=== PATIENT | male | born 1965 | race Caucasian/White ===

== ENCOUNTER 2016-05-29 14:21 | Emergency (ER) | payer OTHER ==
[~2016-05-29] VITALS: Ht 175.3 cm; Wt 87.5 kg
[~2016-05-29 14:21] MED LIST: ALLO300T2 PO; AMLO5TAB4 PO; IND50 PO
[2016-05-29 14:26] VITALS: Ht 175.3 cm; Wt 87.5 kg
[2016-05-29] MEDS ORDERED: BEN25 PO (15:03)
[2016-05-29] MEDS ORDERED: PRED20TA PO (15:04)
[2016-05-29] MEDS ORDERED: RANI150T9 PO (15:04)
--- NOTE | 2016-05-29 15:16 | ERD ---
ER Documentation Chief Complaint Date/Time DATE: 05/29/16 TIME: 15:12 Chief Complaint Pt with generalized body itching, "something crawling on my skin"X 2 weeks. HPI This is a 50-year-old male presents to the ER stating of body itching for the last 3 weeks. Patient went to his primary care doctor and was treated for scabies with permethrin however did not work. Patient does not have a rash. Patient states that he is mostly itching on his legs, back and scalp. Patient denies any fevers or chills. He denies any recent travel. Patient denies any new contact with new chemicals, clothing, food. ROS 12 point review of systems was done, all negative except per HPI. Medications Home Meds Active Scripts Prednisone* (Prednisone*) 20 Mg Tab, 60 MG PO DAILY for 5 Days, TAB Prov:SANDY DEMARCO 05/29/16 Ranitidine Hcl* (Zantac*) 150 Mg Tablet, 150 MG PO BID Y for EPIGASTRIC PAIN, # 30 TAB Prov:SANDY DEMARCO 05/29/16 Diphenhydramine Hcl* (Benadryl*) 25 Mg Cap, 25 MG PO Q6, #30 CAP Prov:SANDY DEMARCO 05/29/16 Indomethacin* (Indocin*) 50 Mg Cap, 50 MG PO TID, #14 CAP Prov:SHAHIDA HANDY PA-C 11/24/14 Allopurinol* (Allopurinol*) 300 Mg Tablet, 300 MG PO DAILY, #30 TAB Prov:CARLOS RAM MD 10/12/14 Reported Medications Amlodipine Besylate* (Norvasc*) 5 Mg Tablet, 5 MG PO DAILY, TAB 01/12/15 Allergies Allergies: Coded Allergies: No Known Allergy (Unverified , 01/12/15) PMhx/Soc History of Surgery: No Anesthesia Reaction: No Hx Neurological Disorder: No Hx Respiratory Disorders: No Hx Cardiac Disorders: Yes (HIGH BLOOD PRESSURE) Hx Psychiatric Problems: No Hx Miscellaneous Medical Probl: Yes (gout, CVA without residual) Hx Alcohol Use: Yes (SOCIALY) Hx Substance Use: No Hx Tobacco Use: No Physical Exam Vitals Vital Signs Date Time Temp Pulse Resp B/P Pulse Ox O2 Delivery O2 Flow Rate FiO2 05/29/16 14:26 97.9 96 16 177/88 97 Physical Exam GENERAL: The patient is well developed and appropriate for usual state of health , in no apparent distress. HEENT: Atraumatic. No tongue swelling, lip swelling, eye swelling CHEST: Clear to auscultation bilaterally. There are no rales, wheezes or rhonchi. HEART: Regular rate and rhythm. No murmurs, clicks, rubs or gallops. NEURO: Alert and oriented. SKIN: Areas of erythema where patient scratching bilateral lower leg. No other rashes Procedures/MDM Differential Diagnosis: dermatitis, allergic urticaria, viral exanthem, insect bite, fungal infection ,viral exanthem, hand foot mouth disease, , impetigo, cellulitis, abscess, lana carlos syndrome, meningocemia, necrotizing fasciitis, myositis. At this time patient's pruritus is likely due to an allergic reaction. Patient stated that he did try a course of steroids and that it helped with his symptoms however they returned. Do not believe that patient has scabies as there is no burrowing rash. Suspicion for cellulitis or infectious process low. Patient is afebrile and well-appearing. Patient will be sent home with Benadryl, ranitidine, prednisone. Do not believe that patient is having an acute allergic reaction such as anaphylaxis as he is extremely well appearing is not hypoxic and does not have any angioedema. Patient needs to follow-up with his primary care doctor within 1-2 days or return to ER sooner symptoms worsen. My medical decision making was shared with the patient he understands and agrees with plan. Departure Diagnosis: Primary Impression: Rash Condition: Stable Patient Instructions: Self-Care for Skin Rashes Referrals: ACACIA BOWEN (PCP) Additional Instructions: Call your primary care doctor TOMORROW for an appointment during the next 1-2 days.See the doctor sooner or return here if your condition worsens before your appointment time. SANDY DEMARCO May 29, 2016 15:15
== END 2016-05-29 15:05 | disposition home or self-care (01) ==
LOC: E/R 14:21
DX: R21 Rash and other nonspecific skin eruption (principal)
CPT/HCPCS: 99283

== ENCOUNTER 2017-02-21 00:33 | Emergency (ER) | payer OTHER ==
[~2017-02-21] VITALS: Ht 177.8 cm; Wt 84.3 kg
[~2017-02-21 00:33] MED LIST changes: +BEN25 PO; +PRED20TA PO; +RANI150T9 PO
[2017-02-21 00:40] VITALS: Ht 177.8 cm; Wt 84.3 kg
[2017-02-21] MEDS ORDERED: morphine 4 MG/ML VIAL IV STA (02:13)
[2017-02-21] MEDS ORDERED: ONDANSETRON 4 MG INJ IV STA (02:13)
[2017-02-21] MEDS ORDERED: hydrALAzine 20 MG INJ IV ONE (02:30)
[2017-02-21 03:10] LABS: BASOPHIL # 0.1 10^3/ul (0.0-0.1); BASOPHILS % 0.7 % (0.0-2.0); EOSINOPHILS # 0.4 10^3/ul (0.0-0.5); EOSINOPHILS % 4.8 % (0.0-7.0); HEMATOCRIT 43.2 % (42.0-52.0); HEMOGLOBIN 14.9 g/dl (14.0-18.0); LYMPHOCYTES # 1.5 10^3/ul (0.8-2.9); LYMPHOCYTES % 19.6 % (15.0-51.0); MEAN CORPUSCULAR HEMOGLOBIN 29.2 pg (29.0-33.0); MEAN CORPUSCULAR HGB CONC 34.5 g/dl (32.0-37.0); MEAN CORPUSCULAR VOLUME 84.7 fl (82.0-101.0); MONOCYTE # 0.8 10^3/ul (0.3-0.9); MONOCYTES % 10.5 % (0.0-11.0); NEUTROPHIL # 4.8 10^3/ul (1.6-7.5); NEUTROPHILS % 64.1 % (39.0-77.0); PLATELET COUNT 377 10^3/UL (140-415); RED CELL DISTRIBUTION WIDTH 12.6 % (11.5-14.5); WHITE BLOOD COUNT 7.5 10^3/ul (4.8-10.8)
--- NOTE | 2017-02-21 03:13 | RADRPT ---
PROCEDURE: XR Chest. CLINICAL INDICATION: Chest Pain. TECHNIQUE: Portable single view of the chest COMPARISON: 05/05/2014 FINDINGS: Slightly shallower lung inflation. The heart size likely remains top normal. No acute infiltrate, pl eural effusion, or overt congestive heart failure is seen. No definite acute bony abnormality. Degen erative change of the spine. IMPRESSION: Shallower lung inflation. No definite acute disease. RPTAT: HLBE Radha Eagle, Physician Date Time Electronically viewed and signed by Radha Eagle, Physician on 02/21/2017 03:13 LE/
[2017-02-21 04:09] LABS: ALBUMIN 3.8 g/dl (3.3-4.9); ALBUMIN/GLOBULIN RATIO 1.18; BILIRUBIN,INDIRECT 0.2 mg/dl (0-1.1); BILIRUBIN,TOTAL 0.2 mg/dl (0.2-1.3); CREATININE 2.07 mg/dl (0.61-1.24); POTASSIUM 3.5 mmol/L (3.5-5.1)
[2017-02-21 04:20] LABS: TROPONIN-I 0.025 ng/ml (0.00-0.12)
[2017-02-21 05:43] VITALS: BP 125/87; PULSE 68; RESP 19; TEMP 98.2
--- NOTE | 2017-02-21 05:44 | ERD ---
ER Documentation Chief Complaint Chief Complaint hype tension, gouty pain on both knees, both fingers HPI This a very pleasant 51-year-old male comes in with complaints of pain in bilateral knees and fingertips that is consistent with history of previous gout pain.. Started today. Mild to moderate in intensity. No nausea no vomiting no fevers no chills. Also noted to have elevated blood pressure. Been noncompliant with his blood pressure medications. Denies chest pain headache or focal neurological complaints or blood in urine. ROS All systems reviewed and are negative except as per history of present illness. Medications Home Meds Active Scripts Prednisone* (Prednisone*) 20 Mg Tab, 60 MG PO DAILY for 5 Days, TAB Prov:SANDY DEMARCO 05/29/16 Ranitidine Hcl* (Zantac*) 150 Mg Tablet, 150 MG PO BID Y for EPIGASTRIC PAIN, # 30 TAB Prov:SANDY DEMARCO 05/29/16 Diphenhydramine Hcl* (Benadryl*) 25 Mg Cap, 25 MG PO Q6, #30 CAP Prov:SANDY DEMARCO 05/29/16 Indomethacin* (Indocin*) 50 Mg Cap, 50 MG PO TID, #14 CAP Prov:SHAHIDA HANDY PA-C 11/24/14 Allopurinol* (Allopurinol*) 300 Mg Tablet, 300 MG PO DAILY, #30 TAB Prov:CARLOS RAM MD 10/12/14 Reported Medications Amlodipine Besylate* (Norvasc*) 5 Mg Tablet, 5 MG PO DAILY, TAB 01/12/15 Allergies Allergies: Coded Allergies: No Known Allergy (Unverified , 01/12/15) PMhx/Soc History of Surgery: No Anesthesia Reaction: No Hx Neurological Disorder: No Hx Respiratory Disorders: No Hx Cardiac Disorders: Yes (HIGH BLOOD PRESSURE) Hx Psychiatric Problems: No Hx Miscellaneous Medical Probl: Yes (gout, CVA without residual) Hx Alcohol Use: Yes (SOCIALY) Hx Substance Use: No Hx Tobacco Use: No Smoking Status: Never smoker Physical Exam Vitals Vital Signs Date Time Temp Pulse Resp B/P Pulse Ox O2 Delivery O2 Flow Rate FiO2 02/21/17 04:33 98.2 81 19 119/76 98 Room Air 02/21/17 03:30 98.2 85 19 143/80 98 Room Air 02/21/17 02:28 98.2 89 19 181/115 98 Room Air 02/21/17 00:40 98.2 83 20 182/118 98 Physical Exam Const: [] Head: Atraumatic Eyes: Normal Conjunctiva ENT: Normal External Ears, Nose and Mouth. Neck: Full range of motion..~ No meningismus. Resp: Clear to auscultation bilaterally Cardio: Regular rate and rhythm, no murmurs Abd: Soft, non tender, non distended. Normal bowel sounds Skin: No petechiae or rashes Back: No midline or flank tenderness Ext: No cyanosis, or edema Neur: Awake and alert Psych: Normal Mood and Affect Result Diagram: 02/21/1721902/21/17219 Results 24 hrs Laboratory Tests Test 02/21/17 02:20 White Blood Count 7.510^3/ul Red Blood Count 5.1010^6/ul Hemoglobin 14.9g/dl Hematocrit 43.2% Mean Corpuscular Volume 84.7fl Mean Corpuscular Hemoglobin 29.2pg Mean Corpuscular Hemoglobin Concent 34.5g/dl Red Cell Distribution Width 12.6% Platelet Count 80153^3/UL Mean Platelet Volume 10.0fl Neutrophils % 64.1% Lymphocytes % 19.6% Monocytes % 10.5% Eosinophils % 4.8% Basophils % 0.7% Nucleated Red Blood Cells % 0.0/100WBC Neutrophils # 4.810^3/ul Lymphocytes # 1.510^3/ul Monocytes # 0.810^3/ul Eosinophils # 0.410^3/ul Basophils # 0.110^3/ul Nucleated Red Blood Cells # 0.010^3/ul Sodium Level 141mmol/L Potassium Level 3.5mmol/L Chloride Level 106mmol/L Carbon Dioxide Level 23mmol/L Anion Gap 16 Blood Urea Nitrogen 28mg/dl Creatinine 2.07mg/dl Glucose Level 177mg/dl Uric Acid 10.2mg/dl Calcium Level 9.0mg/dl Total Bilirubin 0.2mg/dl Direct Bilirubin 0.00mg/dl Indirect Bilirubin 0.2mg/dl Aspartate Amino Transf (AST/SGOT) 25IU/L Alanine Aminotransferase (ALT/SGPT) 47IU/L Alkaline Phosphatase 137IU/L Troponin I 0.025ng/ml B-Type Natriuretic Peptide 892PG/ML Total Protein 7.0g/dl Albumin 3.8g/dl Globulin 3.20g/dl Albumin/Globulin Ratio 1.18 Current Medications Medications (Trade) Dose Ordered Sig/Carine Route PRN Reason Start Time Stop Time Status Last Admin Dose Admin Morphine Sulfate (morphine) 4 mg ONCE STAT IV 02/21/17 02:13 02/21/17 02:14 DC 02/21/17 02:51 Ondansetron HCl (Zofran Inj) 4 mg ONCE STAT IV 02/21/17 02:13 02/21/17 02:14 DC 02/21/17 02:51 Hydralazine HCl (Apresoline) 20 mg ONCE ONCE IV 02/21/17 02:30 02/21/17 02:31 DC 02/21/17 02:51 Procedures/MDM EKG: Rate/Rhythm: [Normal Sinus Rhythm] QRS, ST, T-waves: [No changes consistent w/ acute ischemia] Impression: [No evidence of ischemia or arrhythmia] Chest X-ray 1V Interpreted by me: Soft Tissue: No acute abnormalities Bones: No acute abnormalities Mediastinum/Cardiac Silhouette/Lungs: [No acute abnormalities] Patient's blood pressure was elevated (>120/80) but appears stable without evidence of hypertension emergency or urgency. The patient was counseled about the risks of hypertension and urged to pursue outpatient monitoring and therapy within a week with their primary care physician. Gout symptoms is not stabilized. Patient will be discharged home. Told to follow-up PCP. Departure Diagnosis: Primary Impression: Gout Gout site: multiple sites Gout etiology: unspecified cause Chronicity: acute Qualified Code: M10.9 - Acute gout of multiple sites, unspecified cause Condition: Stable BROOKE SMITHMarcelo Feb 21, 2017 05:43
[2017-02-21] MEDS ORDERED: KETOROLAC 30 MG INJ IV STA (05:46)
[2017-02-21] MEDS ORDERED: IND50 PO (05:47)
== END 2017-02-21 06:00 | disposition home or self-care (01) ==
LOC: E/R 00:33
DX: M10.9 Gout, unspecified (principal); R07.9 Chest pain, unspecified
CPT/HCPCS: 36415; 71010; 80053; 83880; 84484; 84560; 85025; 93005; 96374; 96375; J0360; J1885; J2270; J2405; Z7502

== ENCOUNTER 2017-03-05 08:00 | Inpatient (IN) | payer OTHER ==
[2017-03-05] VITALS (7 sets, daily range): BP systolic 156–183; BP diastolic 65–118; PULSE 56–73; RESP 18–20; Ht 177.8 cm; Wt 81.8 kg
[~2017-03-05] VITALS: Ht 177.8 cm; Wt 81.8 kg
--- NOTE | 2017-03-05 08:36 | ERD ---
ER Documentation Chief Complaint Chief Complaint left sided numbness since yesterday HPI This is a 51-year-old male with a past medical history of hypertension, gout, previous hemorrhagic stroke several years ago with resolved left-sided deficits who is presenting with left-sided tingling, a strange sensation, imbalance for approximately 12-16 hours. The patient states that he was driving when he started to feel a strange sensation to the left side of his body. He did not feel like he had as much control over the left as he normally does. The patient did not initially want to come to the emergency department, but after continuing to have the symptoms this morning after waking up, he was concerned and decided to come for evaluation. The patient had a hemorrhagic stroke in the past on the right side of his brain that caused transient left-sided deficits, but these symptoms had resolved prior to yesterday. The patient states that he was ultimately transferred to [facility] at that time for subsequent assessment. The patient also endorses having had edema around the brain at that time. The patient denies feeling sick recently. The patient denies fever or chills. The patient has had no headache or vision changes. The patient does not endorse neck or back pain. The patient denies lightheadedness or dizziness. The patient has had no chest pain or shortness of breath or trouble breathing. The patient denies nausea or vomiting. The patient denies abdominal pain or changes to bowel movements or urination. ROS All systems reviewed and are negative except as per history of present illness. Medications Home Meds Active Scripts Indomethacin* (Indocin*) 50 Mg Cap, 50 MG PO Q6, #20 CAP Prov:BROOKE SMITH 02/21/17 Prednisone* (Prednisone*) 20 Mg Tab, 60 MG PO DAILY for 5 Days, TAB Prov:NILAM,SANDY C 05/29/16 Ranitidine Hcl* (Zantac*) 150 Mg Tablet, 150 MG PO BID Y for EPIGASTRIC PAIN, # 30 TAB Prov:NILAMROSA MARIASANDY C 05/29/16 Diphenhydramine Hcl* (Benadryl*) 25 Mg Cap, 25 MG PO Q6, #30 CAP Prov:NILAM,SANDY C 05/29/16 Indomethacin* (Indocin*) 50 Mg Cap, 50 MG PO TID, #14 CAP Prov:SHAHIDA HANDY PA-C 11/24/14 Allopurinol* (Allopurinol*) 300 Mg Tablet, 300 MG PO DAILY, #30 TAB Prov:CARLOS RAM MD 10/12/14 Reported Medications Amlodipine Besylate* (Norvasc*) 5 Mg Tablet, 5 MG PO DAILY, TAB 01/12/15 Allergies Allergies: Coded Allergies: No Known Allergy (Unverified , 03/05/17) PMhx/Soc History of Surgery: No Anesthesia Reaction: No Hx Neurological Disorder: No Hx Respiratory Disorders: No Hx Cardiac Disorders: Yes (HIGH BLOOD PRESSURE) Hx Psychiatric Problems: No Hx Miscellaneous Medical Probl: Yes (gout, CVA without residual) Hx Alcohol Use: Yes (SOCIALY) Hx Substance Use: No Hx Tobacco Use: No Smoking Status: Never smoker FmHx Family History: No coronary disease, No diabetes Physical Exam Vitals Vital Signs Date Time Temp Pulse Resp B/P Pulse Ox O2 Delivery O2 Flow Rate FiO2 03/05/17 09:59 60 18 192/121 100 03/05/17 08:55 69 183/117 100 03/05/17 08:28 Nasal Cannula 2 03/05/17 08:26 77 18 198/132 98 Nasal Cannula 2.0 03/05/17 08:02 98.6 107 19 205/136 98 Physical Exam Const: No apparent distress, well-developed, well-nourished Head: Normocephalic, Atraumatic Eyes: Normal Conjunctiva. Extraocular movements intact. Pupils equal, round and reactive to light ENT: Normal External Ears, Nose and Mouth. Neck: Full range of motion. No meningismus. Resp: Clear to auscultation bilaterally, No wheezes, rales or rhonchi Cardio: Regular rate and rhythm. No murmurs, rubs or gallops Abd: Soft, non tender, non distended. Normal bowel sounds Skin: No petechiae or rashes Back: No midline tenderness. No CVA tenderness Ext: No cyanosis, or edema Neur: Awake and alert, oriented 4. Cranial nerves intact, except for decreased left-sided nasolabial fold and mild facial droop. Normal strength and sensation. Left upper extremity pronator drift. Psych: Normal Mood and Affect Result Diagram: 12/3/17 0822 12/3/17 0822 Results 24 hrs Laboratory Tests Test 03/05/17 08:22 White Blood Count 10.710^3/ul Red Blood Count 5.3910^6/ul Hemoglobin 15.8g/dl Hematocrit 47.5% Mean Corpuscular Volume 88.1fl Mean Corpuscular Hemoglobin 29.3pg Mean Corpuscular Hemoglobin Concent 33.3g/dl Red Cell Distribution Width 12.9% Platelet Count 16172^3/UL Mean Platelet Volume 9.5fl Neutrophils % 73.2% Lymphocytes % 17.7% Monocytes % 7.4% Eosinophils % 0.6% Basophils % 0.7% Nucleated Red Blood Cells % 0.0/100WBC Neutrophils # 7.910^3/ul Lymphocytes # 1.910^3/ul Monocytes # 0.810^3/ul Eosinophils # 0.110^3/ul Basophils # 0.110^3/ul Nucleated Red Blood Cells # 0.010^3/ul Prothrombin Time 11.8Sec Prothrombin Time Ratio 0.9 INR International Normalized Ratio 0.86 Activated Partial Thromboplast Time 29.1Sec Sodium Level 143mmol/L Potassium Level 4.9mmol/L Chloride Level 108mmol/L Carbon Dioxide Level 21mmol/L Anion Gap 19 Blood Urea Nitrogen 45mg/dl Creatinine 2.53mg/dl Glucose Level 175mg/dl Hemoglobin A1c 6.9% Calcium Level 9.9mg/dl Troponin I < 0.012ng/ml Current Medications Medications (Trade) Dose Ordered Sig/Carine Route PRN Reason Start Time Stop Time Status Last Admin Dose Admin Aspirin (Aspirin) 324 mg ONCE ONCE PO 03/05/17 10:30 03/05/17 10:31 03/05/17 10:20 Procedures/[facility] The patient's presentation warrants further investigation. The patient has a history of a hemorrhagic stroke in the past. The patient's blood pressure is quite elevated today, and I consider am concerned that this could be an etiology today. A code stroke was called. LABS The patient's blood work was obtained and reviewed. The patient's CBC shows no leukocytosis and no left shift. The patient is afebrile and does not appear systemically ill. I do not suspect a systemic infection. The patient is not anemic today. The patient's platelet count is elevated today, which may be reactive. The patient's BMP shows no signs of metabolic or electrolyte emergencies. Looking back on the medical records, the patient does have an elevated creatinine at baseline. The patient's baseline appears to be around 2.0. The patient's renal function is decreased today. The patient's coags do indicate a INR that is actually low. With the patient's thrombocytosis, I have some suspicion for a hypercoagulable state. She does not endorse a history. EKG EKG read by me: Rate/Rhythm: Regular rate and rhythm at a rate of 78 bpm Intervals: Normal [place]: Normal Impression: No evidence of acute ischemia or arrhythmia IMAGING CT Head FINDINGS: Linear hypodensity in the left putamen and small right dorsal pontine hypodensity are again visualized. There is no evidence of acute intracranial hemorrhage, mass effect, or midline shift. No extra-axial fluid collection is seen. The ventricles and sulci are normal in size and configuration. There is patchy decreased attenuation in the periventricular and deep white matter, somewhat nonspecific though likely reflective of mild microvascular ischemic disease. The ramos white matter differentiation appears well-preserved. The posterior fossa is unremarkable. There are mild internal carotid artery calcifications. The visualized paranasal sinuses and osseous structures are grossly unremarkable. IMPRESSION: No evidence of acute intracranial pathology. Mild microvascular ischemic disease. Chronic hemorrhagic left putaminal infarct. Chronic right pontine lacunar infarct. Electronically viewed and signed by Physician Najma on 03/05/2017 08: 51 CXR FINDINGS: Cardiac/vascular structures: Normal cardiomediastinal silhouette. Pulmonary: Lungs are clear. No pleural effusion. No evidence of pneumothorax. Osseous structures: Normal Soft tissues: Normal IMPRESSION: No acute cardiopulmonary disease. Electronically viewed and signed by Physician Edmar on 03/05/2017 08 :51 TREATMENT/DISPOSITION I placed the patient's NIH stroke scale at 2-3 left upper and lower extremity drift and left nasolabial fold deficit. That said, the patient's symptoms started yesterday and he is outside the TPA window. Additionally, the patient CT of the head does not reveal any acute etiology. The tele-neurologist evaluated the patient and felt that he required admission for further evaluation of a CVA. He will receive full dose aspirin today and needs to be started on a baby aspirin daily. An MRI of the head and an MRA of the head and neck will also need to be ordered. An echocardiogram will need to be completed to evaluate his heart. Since blood pressure is quite elevated in the emergency department. For now, I will allow for permissive hypertension in the emergency department, but he will require blood pressure management. At this time, I feel that the patient requires admission for further evaluation and management. I do not feel that the patient is stable for transfer. There is also possibility of hemorrhagic conversion of a stroke that could lead to acute decompensation. The patient will be admitted to [facility] in accordance with the patient's insurance. The patient was accepted by Dr. Sherwood at 10:25 AM on March 05, 2017 to telemetry. Disclaimer: Inadvertent spelling and grammatical errors are likely due to EHR/ dictation software use and do not reflect on the overall quality of patient care. Note that the electronic time recorded on this note does not necessarily reflect the actual time of the patient encounter. Departure Diagnosis: Primary Impression: CVA (cerebral vascular accident) CVA mechanism: unspecified Qualified Code: I63.9 - Cerebrovascular accident (CVA), unspecified mechanism Additional Impressions: Discoordination Facial droop Hypertensive urgency Condition: Serious MAGDA JOYCE MD Mar 05, 2017 08:34
[2017-03-05 08:48] LABS: BASOPHIL # 0.1 10^3/ul (0.0-0.1); BASOPHILS % 0.7 % (0.0-2.0); EOSINOPHILS # 0.1 10^3/ul (0.0-0.5); EOSINOPHILS % 0.6 % (0.0-7.0); HEMATOCRIT 47.5 % (42.0-52.0); HEMOGLOBIN 15.8 g/dl (14.0-18.0); LYMPHOCYTES # 1.9 10^3/ul (0.8-2.9); LYMPHOCYTES % 17.7 % (15.0-51.0); MEAN CORPUSCULAR HEMOGLOBIN 29.3 pg (29.0-33.0); MEAN CORPUSCULAR HGB CONC 33.3 g/dl (32.0-37.0); MEAN CORPUSCULAR VOLUME 88.1 fl (82.0-101.0); MEAN PLATELET VOLUME 9.5 fl (7.4-10.4); MONOCYTE # 0.8 10^3/ul (0.3-0.9); MONOCYTES % 7.4 % (0.0-11.0); NEUTROPHIL # 7.9 10^3/ul (1.6-7.5); NEUTROPHILS % 73.2 % (39.0-77.0); PLATELET COUNT 492 10^3/UL (140-415); RED BLOOD COUNT 5.39 10^6/ul (4.70-6.10); RED CELL DISTRIBUTION WIDTH 12.9 % (11.5-14.5); WHITE BLOOD COUNT 10.7 10^3/ul (4.8-10.8)
--- NOTE | 2017-03-05 08:51 | RADRPT ---
PROCEDURE: XR Chest. CLINICAL INDICATION: Chest pain TECHNIQUE: Single portable view of the chest was obtained. COMPARISON: 02/21/2017 FINDINGS: Cardiac/vascular structures: Normal cardiomediastinal silhouette. Pulmonary: Lungs are clear. No pleural effusion. No evidence of pneumothorax. Osseous structures: Normal Soft tissues: Normal IMPRESSION: No acute cardiopulmonary disease. RPTAT:AAJJ Physician Edmar Date Time Electronically viewed and signed by Varsha Krishna Physician on 03/05/2017 08:51 /
--- NOTE | 2017-03-05 08:51 | RADRPT ---
AMENDMENT: 03/05/2017 11:51:53 AM Jodie Montanez M.d Results were called to Shon Birch at 03/05/2017 8:50 AM PROCEDURE: CT Brain without contrast. CLINICAL INDICATION: Code stroke, left-sided weakness, hypertension TECHNIQUE: A CT of the brain was performed on a [employer] 64-slice CT scanner utilizing axial imaging from the skull base through the vertex without IV contrast. Multiplanar reformatted images were made. Images were reviewed on a PACS workstation. The CTDIvol is 44.11 mGy and the DLP is 720 .23 mGycm. DICOM images are available. One or more of the following dose reduction techniques were utilized: 1.) Automated exposure control 2.) Adjustment of the mA +/- kV according to patient's size 3.) Use of iterative reconstruction technique. COMPARISON: MR 01/13/2015; CT BRAIN 01/12/2015 FINDINGS: Linear hypodensity in the left putamen and small right dorsal pontine hypodensity are again visualiz ed. There is no evidence of acute intracranial hemorrhage, mass effect, or midline shift. No extr a-axial fluid collection is seen. The ventricles and sulci are normal in size and configuration. The re is patchy decreased attenuation in the periventricular and deep white matter, somewhat nonspecifi c though likely reflective of mild microvascular ischemic disease. The ramos white matter differenti ation appears well-preserved. The posterior fossa is unremarkable. There are mild internal carotid a rtery calcifications. The visualized paranasal sinuses and osseous structures are grossly unremarka ble. IMPRESSION: 1. No evidence of acute intracranial pathology. 2. Mild microvascular ischemic disease. Chronic hemorrhagic left putaminal infarct. Chronic right pontine lacunar infarct. RPTAT: HCNS Physician Najma Date Time Electronically viewed and signed by Physician Najma on 03/05/2017 08:51 CS/
[2017-03-05 09:00] LABS: INR 0.86; PARTIAL THROMBOPLASTIN TIME 29.1 Sec (25.0-35.0); PROTIME 11.8 Sec (11.9-14.9); PT RATIO 0.9
[2017-03-05 09:01] LABS: ANION GAP 19 (8-16); BLOOD UREA NITROGEN 45 mg/dl (7-20); CALCIUM 9.9 mg/dl (8.4-10.2); CARBON DIOXIDE 21 mmol/L (21-31); CHLORIDE 108 mmol/L (97-110); CREATININE 2.53 mg/dl (0.61-1.24); GLUCOSE 175 mg/dl (70-220); POTASSIUM 4.9 mmol/L (3.5-5.1); SODIUM 143 mmol/L (135-144)
[2017-03-05 09:32] LABS: TROPONIN-I < 0.012 ng/ml (0.00-0.12)
--- NOTE | 2017-03-05 09:56 | STROKE ---
Date/Time of Note Date/Time of Note DATE: 03/05/17 TIME: 09:04 Patient Information General Patient location: emergency Arrival Date Age 51 Gender male Weight 82.2 kg Vital Signs Vital Signs Vital Signs Date Time Temp Pulse Resp B/P Pulse Ox O2 Delivery O2 Flow Rate FiO2 03/05/17 08:55 69 183/117 100 03/05/17 08:28 Nasal Cannula 2 03/05/17 08:26 18 03/05/17 08:02 98.6 Patient History Current Medications Allergies: Coded Allergies: No Known Allergy (Unverified , 01/12/15) Labs Hematology Labs Hematology Test 03/05/17 08:22 Coagulation Labs: Coagulation Test 03/05/17 08:22 Prothrombin Time 11.8Sec (11.9-14.9) Prothrombin Time Ratio 0.9 INR International Normalized Ratio 0.86 Activated Partial Thromboplast Time 29.1Sec (25.0-35.0) History & Physical Patient History Notes Pt Hx Reviewed History of Present Illness 51yo M h/o previous right hemorrhagic stroke without residual deficits, now presents with left sided paresthesias and decreased coordination. Patient reports his symptoms began last night at 6:30pm, but he did not want to come to the hospital and went to sleep. Review of Systems Constitutional: no symptoms reported EENTM: no symptoms reported Respiratory: no symptoms reported Cardiovascular: no symptoms reported Gastrointestinal: no symptoms reported Genitourinary: no symptoms reported Musculoskeletal: no symptoms reported Skin: no symptoms reported Psychiatric/Neurological: no symptoms reported All Other Systems: Reviewed and Negative NIH Stroke Scale NIH Stroke Scale 1A - Level of Conciousness: 0 - Alert keenly [id number] LOC Questions: 0 - Answers both [id number] - LOC Commands: 0 - Performs both tasks2 - Best Gaze: 0 - Normal3 - Visual: 0 - No visual loss4 - Facial Palsy: 0 - No visual loss 5A - Motor Arm - Left: 1 - [id number] - Motor Arm - Right: 0 - No [id number] - Motor Leg - Left: 0 - No [id number] - Motor Leg - Right: 0 - No drift7 - Limb Ataxia: 0 - Absent8 - Sensory: 0 - Normal9 - Best Language: 0 - No aphasia or normalDysarthria: 0 - [id number] - Extinction and inattentio: 0 - No abnormalityTotal Score: 1 Date/Time Recorded DATE: 03/05/17 TIME: 09:04 Submitted By Maylin Weber t-PA Imaging Review Imaging Reviewed: Yes Date/Time Imaging Reviewed DATE: 03/05/17 TIME: 09:04 Imaging Findings No acute changes t-PA Administration Recommendation: No Weight 82.2 kg Recommedation submitted by Maylin Weber Reason t-PA not Recommended outside time window t-PA Not Recommended Date/Time 08:25 Recommendations Impression Diagnosis ischemic stroke Recommendation 51yo M presents with acute onset left arm weakness. Neurological exam is notable for left arm weakness. I believe the patient has had an acute ischemic stroke. I recommend workup include MRI Brain without gadolinium, MRA of the head without gadolinium, MRA of the neck with gadolinium, and transthoracic echocardiogram. I recommend aspirin 325mg x 1 then 81mg daily. We discussed the patient trepidation regarding coming to the hospital, and his apathy related to chronic gout related pain, and then discussed strategies to help the patient make better choices. Diagnostic Labs: Lipid Proile Hgb A1C CMP CBC w/Diff Coags Therapy: Physical Therapy Speech Therapy Occupational Therapy Misc. Recommendations: Bedside Swallow Evaluation Pnumatic Compression Devices Stroke Education Smoking Education MAYLIN WEBER Mar 05, 2017 09:55
[2017-03-05] MEDS ORDERED: ALLO300T2 PO (10:27)
[2017-03-05] MEDS ORDERED: AMLO-147 PO (10:27)
[2017-03-05 10:30] LABS: ADD UMIC YES; UR ASCORBIC ACID NEGATIVE (NEGATIVE); UR BACTERIA FEW /HPF (NONE SEEN); UR BILIRUBIN (Dip) NEGATIVE (NEGATIVE); UR BLOOD (Dip) NEGATIVE (NEGATIVE); UR CLARITY CLEAR (CLEAR); UR COLOR STRAW (YELLOW); UR GLUCOSE (Dip) 1+ mg/dL (NEGATIVE); UR KETONES (Dip) NEGATIVE (NEGATIVE); UR LEUKOCYTE ESTERASE (Dip) NEGATIVE Leu/ul (NEGATIVE); UR NITRITE (Dip) NEGATIVE (NEGATIVE); UR RBC 0 /HPF (0-5); UR SPECIFIC GRAVITY (Dip) 1.011 (1.003-1.030); UR TOTAL PROTEIN (Dip) 2+ mg/dl (NEGATIVE); UR UROBILINOGEN (Dip) NEGATIVE (NEGATIVE)
[2017-03-05] MEDS ORDERED: ONDANSETRON 4 MG INJ IV PRN (10:30)
[2017-03-05] MEDS ORDERED: ACETAMINOPHEN 325 MG TAB PO PRN (10:30)
[2017-03-05] MEDS ORDERED: ASPIRIN 81 MG TAB PO ONE (10:30)
[2017-03-05 10:44] LABS: BARBITURATES Negative (NEGATIVE); BENZODIAZEPINES Negative (NEGATIVE); CANNABINOIDS Negative (NEGATIVE); COCAINE Negative (NEGATIVE); OPIATES Positive (NEGATIVE)
[2017-03-05] MEDS: PANTOPRAZOLE (EC) 40 MG TAB PO SCH (12:44)
[2017-03-05] MEDS: ENOXAPARIN 30 MG/0.3 ML SYG SC SCH (12:48)
[2017-03-05] MEDS: ENALAPRILAT 1.25 MG INJ IV PRN (14:41)
--- NOTE | 2017-03-05 15:36 | RADRPT ---
Echocardiogram Report Patient Name: HILARIA GUERRERO Gender: Male Date: 1965 Study Date: 05-Mar-2017 Ship Mate: SHONNA Location: 514 Ref. Physician: LUCIO RON Quality: Good Procedures: Transthoracic echocardiogram with complete 2D, M-Mode, and doppler examination. Indications: Acute Cerebrovascular Accident. 2D/M Mode Doppler Measurement Value Normal Ranges Measurement Value Normal Ranges LVIDd 2D 4.8 3.5 - 5.6 cm CAMI Vmax 2.2 cm2 LVIDs 2D 3.3 2.1 - 4.1 cm AV Mean Parker 0.9 m/sec FS 2D 32.0 % AV Mean PG 4.0 mmHg LVPWd 2D 1.0 0.6 - 1.1 cm AV Peak Parker 1.3 m/sec IVSd 2D 1.1 0.6 - 1.1 cm AV Peak PG 7.0 mmHg IVS/LVPW 2D 1.1 AV VTI 24.9 cm EDV 2D 109.0 cm3 LVOT Peak Parker 1.0 m/sec ESV 2D 34.3 cm3 LVOT Peak PG 4.0 mmHg LVOT Diam 2.0 cm MV E Peak Parker 0.6 m/sec LVOT Area 3.1 cm2 MV A Peak Parker 0.8 m/sec MV E/A 0.7 MV Decel Time 229 msec MV E/A 0.7 Findings Left Ventricle: Normal left ventricular systolic function. Normal left ventricular cavity size. Normal left ventricular wall thickness. Ejection fraction is visually estimated at 60 %. Tissue Doppler/Mitral Doppler indices are consistent with impaired relaxation (Stage I diastolic dysfunction). Right Ventricle: Normal right ventricular size. Normal right ventricular systolic function. Left Atrium: The left atrium is normal in size. Right Atrium: The right atrium is normal in size. Mitral Valve: Normal appearance and function of the mitral valve with trace physiologic regurgitation. Aortic Valve: Normal appearance of the aortic valve. No significant aortic stenosis or insufficiency. Tricuspid Valve: Normal appearance and function of the tricuspid valve with trace physiologic regurgitation. Unable to obtain RVSP due to minimal presence of tricuspid regurgitation. Pericardium: Normal pericardium with no significant pericardial effusion. Aorta: Normal aortic root. IVC: The IVC is not well visualized. Conclusions 1.Normal left ventricular systolic function. Normal left ventricular cavity size. Normal left ventricular wall thickness. Ejection fraction is visually estimated at 60 %. Tissue Doppler/Mitral Doppler indices are consistent with impaired relaxation (Stage I diastolic dysfunction). 2.Normal appearance and function of the mitral valve with trace physiologic regurgitation. 3.Normal appearance of the aortic valve. No significant aortic stenosis or insufficiency. 4.Normal appearance and function of the tricuspid valve with trace physiologic regurgitation. Unable to obtain RVSP due to minimal presence of tricuspid regurgitation. Electronically Signed By: Mike Cox 05-Mar-2017 15:35:44 -0800 Patient Name: HILARIA GUERRERO Study Date: 05-Mar-[id number]
--- NOTE | 2017-03-05 15:53 | HP ---
DATE OF ADMISSION: 03/05/2017 CHIEF COMPLAINT: "My left arm and left leg are weak and my left leg was shaking." HISTORY OF PRESENT ILLNESS: The patient is a 51-year-old male with hypertension and previous hemorr hagic stroke approximately 7 years ago, who was in his usual state of health until 1 day prior to ad mission. The patient stated he had onset of numbness and weakness in his left lower extremity and l ater in his left upper extremity approximately 6:30 p.m. the night before. Symptoms subsided and th en subsequently he went to bed and at that time his symptoms worsened. He felt that his leg was spa sming and his left arm was weak. He was particularly weak in his left hand. He thought he would re st and the symptoms would resolve, but presented to the emergency department over 12 hours after his initial symptomatology. In the emergency department, he is found to be hypertensive with a blood pressure of 205/136, a puls e rate of 107. The patient had a CT scan of his brain which did not reveal any acute intracranial p athology; however, he had mild microvascular ischemic disease and chronic hemorrhagic left putamen i nfarct as well as chronic right pontine lacunar infarct. The patient was evaluated by Dr. Wong in the emergency department, as well as Dr. Weber from the neurology team. Based on the patient's p resentation and symptomatology, he has an acute ischemic stroke. The patient was given 325 mg of as pirin and multiple lab tests were ordered. Of note, the patient did have a urine toxicology screen that was positive for opiates. Upon questioning, he stated he did not take any opiate containing me dications whatsoever PAST MEDICAL HISTORY: 1. Gout with swollen joints, particularly in the right hand. 2. Hypertension. 3. Hemorrhagic stroke approximately 7 years ago without significant neurologic deficit. PAST SURGICAL HISTORY: None. MEDICATIONS: 1. Amlodipine 10 mg once daily. 2. Allopurinol 300 mg once daily. FAMILY HISTORY: The patient denies any cancer or other medical problems with his mother, father, br others or sisters. REVIEW OF SYSTEMS: Essentially negative except as stated in history of present illness. Of note, t he patient has no slurred speech or difficulty swallowing. No drooling, no facial droop or other sy mptomatology. He denies nausea, vomiting, fever, diaphoresis or chest pain. PHYSICAL EXAMINATION: VITAL SIGNS: Initial blood pressure was 205/136, now currently 153/128, pulse rate ranged from 76 t o 107, currently 76. His respiratory rate is 18, oxygen saturation is 99% on 2 liters nasal cannula . HEENT: Normocephalic, atraumatic. His extraocular movements are intact. Pupils are equal, round, react to light and accommodation. Oropharynx was clear and dry. NECK: No JVD was noted. No thyromegaly was noted. CARDIOVASCULAR: He had a regular rate and rhythm without appreciable murmurs, rubs, or gallops. LUNGS: Clear to auscultation bilaterally without rales, rhonchi or crackles. ABDOMEN: Soft, nontender, nondistended with normoactive bowel sounds present in all 4 quadrants. EXTREMITIES: No clubbing, cyanosis, or edema was noted. NEUROLOGIC: He is alert and oriented x4. Speech is clear and fluent. His cranial nerves II throug h XII were grossly intact. He had 3/5 weakness in his left hand as well as left hand drift. His lo wer extremities 4/5, no deficits in sensation. In his left upper extremity, [id number] was comp romised, right was preserved. With alternating thumb to finger exercise, the patient was uncoordina treva in his left hand and preserved in the right. EXTREMITIES: No clubbing, cyanosis or edema was noted. LABORATORIES/TESTS: White count is 10.7, hemoglobin 15.6, hematocrit 47.5, platelet count of 492,00 0. Sodium 143, potassium 4.9, chloride 108, and bicarbonate 21, anion gap 19, BUN 45, creatinine 2. 53, glucose 175. Hemoglobin A1c 6.9, calcium 9.9, troponin 0.012. Toxicology is positive for opiat es in the urine; however, negative for barbiturates, amphetamines, benzodiazepines, cocaine or canna binoids. His urinalysis has specific gravity 1.010, 2+ protein, and 1+ glucose, few bacteria, and n egative leukocyte esterase and negative nitrite. His chest x-ray revealed no acute cardiopulmonary disease. IMPRESSION: 1. The patient is a 51-year-old male with hypertension and gout as well as a previous hemorrhagic s troke in the past. He presented with left-sided paresthesias and decreased coordination. His sympt oms are starting to improve per the patient. He had an evaluation by the teleneurologist (Dr. Misbah Weber) who recommended 325 mg of aspirin which was given and to continue on 81 mg once daily. Additional workup includes an MRI of the brain without gadolinium, MRI of the head without gadoliniu m, MRA of the neck with gadolinium as well as a transthoracic echocardiogram, all which was ordered. The patient will also have a bedside swallow eval which I anticipate he will pass, as he had no dy sarthria, no tongue deviation whatsoever. He will also get a physical and occupational therapy cons ultations as well as q.4 hour neuro checks. At this point, his blood pressure is coming down to 153 ; however, his diastolic blood pressure is still quite high and for this reason, I will consult with the neurology team and determine if the patient should be on as needed hypertensive medication. Th e balance would be to maintain good cerebral perfusion and permissive hypertension during the acute phase of the stroke. 2. Gout: I will continue the patient on his allopurinol 300 mg once daily. 3. Opiate use: Needs counseling. I spoke to the patient about any opiate use and he denied it. H e stated he takes Motrin and ibuprofen for pain; however, adamantly denied taking any opiate medicat ions or any other illicit drugs. Dictated By: LUCIO MUKHERJEE/FANNY Conf#: [id number] DID#: [id number]
--- NOTE | 2017-03-05 22:39 | RADRPT ---
PROCEDURE: MRA Brain without contrast. CLINICAL INDICATION: Stroke TECHNIQUE: MR angiography of the brain was performed without intravenous contrast. Multiplanar re constructions, three-dimensional reconstructions, as well as maximal intensity projection images are produced and reviewed. COMPARISON: None FINDINGS: Internal carotid arteries: Patent and normal in caliber. Anterior cerebral arteries: A1 segments are codominant. Anterior communicating artery is visualized. Visualized A2 and A3 distribution of the anterior cerebral arteries are patent. Middle cerebral arteries: Both middle cerebral arteries as well as there branch vessels are patent and symmetric in appearance . Small bilateral posterior communicating arteries are present. Vertebral - basilar system: Both vertebral arteries are patent. There is codominance. Basilar artery is patent. Posterior cerebral arteries: Patent bilaterally. IMPRESSION: Normal MRA of the brain. No aneurysm, arteriovenous malformation, or abrupt vessel cutoff is identified. RPTAT: AADD .Hayden Kenyon MD, MD Date Time Electronically viewed and signed by .Hayden Kenyon MD, on 03/05/2017 22:38 .B/
--- NOTE | 2017-03-05 22:46 | RADRPT ---
PROCEDURE: MRI Brain without contrast. CLINICAL INDICATION: Stroke TECHNIQUE: Routine MRI of the brain performed without intravenous contrast. COMPARISON: MR 03/05/2017; CT 03/05/2017 FINDINGS: Diffusion: 7 mm recent infarct within the dorsal limb of the right internal capsule. Hemorrhage: No evidence of recent intracranial hemorrhage. Small foci of remote blood degradation pr oducts observed within the bilateral basal ganglia, right cerebellar hemisphere from prior small hem orrhagic infarcts. Mass effect/midline shift: None. Parenchymal volume: Appears within normal limits for the patient's age. Ventricular system: Concordant with the degree of parenchymal volume. Parenchymal signal changes: 1 mm and 4 mm chronic infarcts of the randi. 17 x 4 mm old hemorrhagic in farct of the left external capsule/lentiform nucleus. 5 x 1.5 mm chronic infarct of the right thalam us. Additional dilated perivascular spaces versus small chronic lacunar infarcts of the bilateral ba joanne ganglia. Small chronic infarcts of the left jessica radiata and centrum semiovale measuring up to 6 mm. Nonspecific small scattered areas of T2 and FLAIR signal hyperintensity measuring a few zak meters are seen in the supratentorial white matter most commonly due to chronic moderate microvascul ar ischemic changes. Differential considerations include sequelae of migraines; prior parenchymal in jury from infectious or inflammatory/demyelinating process; vasculopathy. Vasculature: Appropriate flow voids suggesting patency of the central arterial system and visualize d dural venous sinuses. Paranasal sinuses: Minimal mucous retention cyst of the right maxillary sinus. Mastoid air cells: Clear. Calvarium: Within normal limits. Extracranial soft tissues: Within normal limits. IMPRESSION: 7 mm recent infarct within the dorsal limb of the right internal capsule. Multiple small chronic hemorrhagic and non hemorrhagic prior infarcts involving the randi, bilateral basal ganglia, and left-sided cerebral white matter. Nonspecific small scattered areas of T2 and FLAIR signal hyperintensity measuring a few millimeters are seen in the supratentorial white matter most commonly due to chronic moderate microvascular isch emic changes. Differential considerations include sequelae of migraines; prior parenchymal injury fr om infectious or inflammatory/demyelinating process; vasculopathy. RPTAT: AADD .Hayden Kenyon MD, MD Date Time Electronically viewed and signed by .Hayden Kenyon MD, on 03/05/2017 22:46 .B/
--- NOTE | 2017-03-05 22:55 | RADRPT ---
PROCEDURE: MRA Neck without contrast. CLINICAL INDICATION: Stroke TECHNIQUE: MRA of the neck was performed using time of flight technique without intravenous contra st. Maximal intensity projection images and three-dimensional reconstruction images are producing r albertiewed. Degrees of stenosis are determined by direct reference to the distal normal vessel diameter as per NASCET criteria. COMPARISON: Carotid duplex 01/12/2015 FINDINGS: Aortic arch: Origins of the great vessels of the neck are not well visualized due to respiratory mot ion artifact. Right common carotid artery: Patent. Right internal carotid artery: Possible 50% plaque not well visualized due to patient motion artifac t. Right external carotid artery: Patent with normal branching. Left common carotid artery: Patent. Left internal carotid artery: Patent. Left external carotid artery: Patent with normal branching. Right vertebral artery: Patent. Left vertebral artery: Patent. Vertebral dominance pattern: Codominant IMPRESSION: Possible 50% stenosis of the origin of the right internal carotid artery not well visualized due to patient motion artifact. Recommend carotid duplex for further evaluation. RPTAT: AADD .Hayden Kenyon MD, MD Date Time Electronically viewed and signed by .Hayden Kenyon MD, on 03/05/2017 22:55 .B/
[2017-03-06] VITALS (12 sets, daily range): BP systolic 150–177; BP diastolic 97–108; PULSE 58–90; RESP 19–20
[2017-03-06 06:06] LABS: BASOPHIL # 0.1 10^3/ul (0.0-0.1); EOSINOPHILS # 0.6 10^3/ul (0.0-0.5); EOSINOPHILS % 8.2 % (0.0-7.0); HEMATOCRIT 41.7 % (42.0-52.0); LYMPHOCYTES # 1.8 10^3/ul (0.8-2.9); LYMPHOCYTES % 25.9 % (15.0-51.0); MEAN CORPUSCULAR HEMOGLOBIN 29.4 pg (29.0-33.0); MEAN CORPUSCULAR HGB CONC 33.6 g/dl (32.0-37.0); MEAN CORPUSCULAR VOLUME 87.4 fl (82.0-101.0); MEAN PLATELET VOLUME 9.5 fl (7.4-10.4); MONOCYTE # 0.7 10^3/ul (0.3-0.9); MONOCYTES % 9.4 % (0.0-11.0); NEUTROPHIL # 3.8 10^3/ul (1.6-7.5); NEUTROPHILS % 54.9 % (39.0-77.0); PLATELET COUNT 390 10^3/UL (140-415); RED BLOOD COUNT 4.77 10^6/ul (4.70-6.10); RED CELL DISTRIBUTION WIDTH 12.5 % (11.5-14.5); WHITE BLOOD COUNT 6.9 10^3/ul (4.8-10.8)
[2017-03-06] MEDS: ENALAPRILAT 1.25 MG INJ IV PRN (06:09)
[2017-03-06 06:38] LABS: CALCIUM 8.8 mg/dl (8.4-10.2); CREATININE 2.23 mg/dl (0.61-1.24); POTASSIUM 4.7 mmol/L (3.5-5.1)
[2017-03-06] MEDS: PANTOPRAZOLE (EC) 40 MG TAB PO SCH (08:52)
[2017-03-06] MEDS: ENOXAPARIN 30 MG/0.3 ML SYG SC SCH (08:57)
[2017-03-06] MEDS ORDERED: ASPIRIN (EC) 81 MG TAB PO ONE (09:00)
--- NOTE | 2017-03-06 12:29 | CONS ---
Date/Time of Note Date/Time of Note DATE: 03/06/17 TIME: 12:23 Assessment/Plan Assessment/Plan Chief Complaint/Hosp Course 51 yo male with hx of uncontrolled hypertension, prior hemorrhagic CVA admitted with left arm and leg weakness and numbness with acute right internal capsule infarct. Recommendations: carotid duplex to eval for Right ICA stenosis continue ASA 81 mg EC optimization of blood pressure LDL is 138 start Lipitor 80 mg qhs HBA1c 6.9% new onset diabetes may benefit from oral meds weight loss and dietary modification advised exercise encouraged DVT ppx PT/OT/Speech Problems: Consultation Date/Type/Reason Admit Date/Time Mar 05, 2017 at 10:25 Date of Consultation: Mar 06, 2017 Type of Consultation: Neurology Reason for Consultation CVA Referring Provider: LUCIO RON MD Hx of Present Illness 51 yo male with history of HTN, prior hemorrhagic CVA x2 over 7 years ago related to hypertension admitted with sudden onset of numbness and weakness in LLE. He described left arm with numbness sensation and LLE with spasms. He presented 12 hours after symptom onset, he was evaluated by tele neuro. On admission SBP elevated over 200, CTH no acute process. He was given ASA 325 mg, admitted for further work up. MRI confirms small right internal capsule infarct. Multiple small chronic hemorrhagic and non hemorrhagic prior infarcts involving the randi, bilateral basal ganglia, and left-sided cerebral white matter. Nonspecific small scattered areas of T2 and FLAIR signal hyperintensity measuring a few millimeters are seen in the supratentorial white matter most commonly due to chronic moderate microvascular ischemic changes. He complains mostly of numbness sensation, is able to ambulate with PT. LDL: 138 HBA1C is 6.9% numbness left arm and leg Past Medical History HTN hemorrhagic CVA Social History Smoking Status: Never smoker Exam/Review of Systems Vital Signs Vitals Vital Signs Date Time Temp Pulse Resp B/P Pulse Ox O2 Delivery O2 Flow Rate FiO2 03/06/17 12:20 80 03/06/17 11:54 98.0 19 150/104 96 03/05/17 12:30 Room Air 03/05/17 08:28 2 Intake and Output 03/05/17 03/05/17 03/06/17 15:00 23:00 07:00 Intake Total 220 ml Balance 220 ml Exam Constitutional: alert, oriented, well developed Neurological: PHYSICIAN COMPENSATION ANALYST II-XII intact, nl mental status, nl speech, other (Left UE 4/ 5 with drift LLE 4/5 strength, ataxia in proprotion to weakness in LUE Reflexes 3+ throughout) Results Result Diagram: 03/06/1752703/06/1728 Results 24 hrs Laboratory Tests Test 03/06/17 05:28 White Blood Count 6.9 # Red Blood Count 4.77 Hemoglobin 14.0 Hematocrit 41.7 L Mean Corpuscular Volume 87.4 Mean Corpuscular Hemoglobin 29.4 Mean Corpuscular Hemoglobin Concent 33.6 Red Cell Distribution Width 12.5 Platelet Count 390 # Mean Platelet Volume 9.5 Neutrophils % 54.9 Lymphocytes % 25.9 Monocytes % 9.4 Eosinophils % 8.2 H Basophils % 1.0 Nucleated Red Blood Cells % 0.0 Neutrophils # 3.8 Lymphocytes # 1.8 Monocytes # 0.7 Eosinophils # 0.6 H Basophils # 0.1 Nucleated Red Blood Cells # 0.0 Sodium Level 140 Potassium Level 4.7 Chloride Level 108 Carbon Dioxide Level 23 Anion Gap 14 Blood Urea Nitrogen 42 H Creatinine 2.23 H Glucose Level 130 # Calcium Level 8.8 Triglycerides Level 217 H Cholesterol Level 226 H LDL Cholesterol, Calculated 138 HDL Cholesterol 45 Cholesterol/HDL Ratio 5.0 Medications Medications Current Medications Enoxaparin Sodium (Lovenox) 30 mg DAILY SC Last administered on 03/06/17 08:57 ; Admin Dose 30 MG; Start 03/05/17 at 11:30 Pantoprazole (Protonix Tab) 40 mg DAILY PO Last administered on 03/06/17 08:52 ; Admin Dose 40 MG; Start 03/05/17 at 11:30 Enalaprilat (Vasotec Iv) 1.25 mg Q6H PRN IV hypertension Last administered on 03/06/17 06:09; Admin Dose 1.25 MG; Start 03/05/17 at 14:00 ALANNA NIETO MD Mar 06, 2017 12:29
[2017-03-06] MEDS ORDERED: hydrALAzine 20 MG INJ IV PRN (13:30)
--- NOTE | 2017-03-06 13:50 | PN ---
Date/Time of Note Date/Time of Note DATE: 03/06/17 TIME: 13:13 Assessment/Plan VTE Prophylaxis VTE Prophylaxis Intervention: LMWH Lines/Catheters IV Catheter Type (from Nrs): Peripheral IV Assessment/Plan Assessment/Plan 51-year-old male with: 1. 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 Symptoms has improved, PT seen patient, appreciate recommendations from neurology Dr Gilliam today Continue secondary prevention with aspirin, PT Blood pressure control, statin therapy Carotid Doppler ultrasound pending. May benefit from acute rehab versus outpatient PT at the time of discharge. 2. Hypertension: Patient will be started on nifedipine, because of chronic kidney disease and creatinine running around 2 would avoid FABIO inhibitors or ARB. Also noted to have relative bradycardia with heart rate in the low 60s to upper 50s, therefore beta blockers will be avoided for now. Hydralazine added as needed for systolic blood pressure above 160. 3. Hyperlipidemia: Patient started on high-dose Lipitor. Weight loss and lifestyle modification also recommended. 4. Chronic kidney disease likely hypertensive nephropathy baseline creatinine around 2.2. Renal ultrasound pending, uric acid level pending given history of gout, urine studies pending. Creatinine seems to be at baseline. Avoid potentially nephrotoxic medications. Avoid high dose NSAIDs. 6. Gout: Continue Allopurinol 300 mg once daily. Follow-up on uric acid level. Prophylaxis: Pepcid for GI prophylaxis, Lovenox for DVT prophylaxis. Disposition: Follow-up additional studies, repeat labs in a.m., may be able to discharge home with outpatient PT tomorrow as patient is not inclined to go to any facilities and wants to be discharged home as soon as possible. Subjective 24 Hr Interval Summary Free Text/Dictation Patient doing better today, PT following. He will be started on appropriate therapy status post acute CVA. Appreciate recommendations from neurology. Patient very insistent on going home however I told him we will need a 24-hour period at least adjust his medications, therefore discharge planning for tomorrow at the earliest. Exam/Review of Systems Vital Signs Vitals Vital Signs Date Time Temp Pulse Resp B/P Pulse Ox O2 Delivery O2 Flow Rate FiO2 03/06/17 12:20 80 03/06/17 11:54 98.0 19 150/104 96 03/05/17 12:30 Room Air 03/05/17 08:28 2 Intake and Output 03/05/17 03/05/17 03/06/17 15:00 23:00 07:00 Intake Total 220 ml Balance 220 ml Exam Constitutional: alert, oriented, well developed Respiratory: clear to auscultation, normal air movement Cardiovascular: nl pulses, regular rate and rhythm Gastrointestinal: non-tender, soft Musculoskeletal: nl extremities to inspection Extremities: normal pulses, other (No edema, clubbing or cyanosis.) 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, focal weakness (Left hemiparesis, mild, 4/5), nl mental status, nl speech, other (Discoordination) Results Result Diagram: 03/06/1752703/06/1728 Results 24 hrs Laboratory Tests Test 03/06/17 05:28 White Blood Count 6.9 # Red Blood Count 4.77 Hemoglobin 14.0 Hematocrit 41.7 L Mean Corpuscular Volume 87.4 Mean Corpuscular Hemoglobin 29.4 Mean Corpuscular Hemoglobin Concent 33.6 Red Cell Distribution Width 12.5 Platelet Count 390 # Mean Platelet Volume 9.5 Neutrophils % 54.9 Lymphocytes % 25.9 Monocytes % 9.4 Eosinophils % 8.2 H Basophils % 1.0 Nucleated Red Blood Cells % 0.0 Neutrophils # 3.8 Lymphocytes # 1.8 Monocytes # 0.7 Eosinophils # 0.6 H Basophils # 0.1 Nucleated Red Blood Cells # 0.0 Sodium Level 140 Potassium Level 4.7 Chloride Level 108 Carbon Dioxide Level 23 Anion Gap 14 Blood Urea Nitrogen 42 H Creatinine 2.23 H Glucose Level 130 # Calcium Level 8.8 Triglycerides Level 217 H Cholesterol Level 226 H LDL Cholesterol, Calculated 138 HDL Cholesterol 45 Cholesterol/HDL Ratio 5.0 Medications Medications Current Medications Enoxaparin Sodium (Lovenox) 30 mg DAILY SC Last administered on 03/06/17 08:57 ; Admin Dose 30 MG; Start 03/05/17 at 11:30 Pantoprazole (Protonix Tab) 40 mg DAILY PO Last administered on 03/06/17 08:52 ; Admin Dose 40 MG; Start 03/05/17 at 11:30 Enalaprilat (Vasotec Iv) 1.25 mg Q6H PRN IV hypertension Last administered on 03/06/17 06:09; Admin Dose 1.25 MG; Start 03/05/17 at 14:00 Atorvastatin Calcium (Lipitor) 80 mg HS PO ; Start 03/06/17 at 21:00 TEMI OLSON Mar 06, 2017 13:23
[2017-03-06] MEDS: NIFEdipine (XL) 30 MG TAB PO SCH ×2 (13:52→20:22)
[2017-03-06] MEDS ORDERED: DEXTROSE 50% 50 ML SYRINGE IV PRN ×2 (14:00)
[2017-03-06] MEDS ORDERED: GLUCAGON 1 MG INJ IM PRN (14:00)
[2017-03-06] MEDS ORDERED: GLUCOSE GEL 15 GRAM TUBE BUCCAL PRN (14:00)
[2017-03-06] MEDS ORDERED: GLUCOSE GEL 15 GRAM TUBE PO PRN ×2 (14:00)
--- NOTE | 2017-03-06 15:02 | RADRPT ---
PROCEDURE: Renal US. CLINICAL INDICATION: Renal dysfunction. TECHNIQUE: Multiple sonographic images of the kidneys and urinary bladder were obtained. The imag es were reviewed on a PACS workstation. COMPARISON: Renal ultrasound dated 05/06/2014. FINDINGS: The right kidney measures 10.5 x 4.4 x 4.4 cm. The left kidney measures 11.1 x 4.4 x 4.8 cm. There is no renal mass. There is no hydronephrosis. There is no renal calculus. Renal parenchymal thickness is normal bilaterally. Both kidneys are hyperechoic consistent with medical renal disease. The perirenal regions are normal with no fluid collection or mass. The urinary bladder is unremarkable. IMPRESSION: 1. Bilateral hyperechoic kidneys consistent with medical renal disease. 2. Otherwise unremarkable renal ultrasound. RPTAT: QQ .Wes Piña MD, MD Date Time Electronically viewed and signed by .Wes Piña MD, on 03/06/2017 15:02 .R/
--- NOTE | 2017-03-06 16:58 | RADRPT ---
PROCEDURE: US Carotids. CLINICAL INDICATION: Syncope TECHNIQUE: Multiple sonographic of the carotid bifurcation region and vertebral arteries were obta ined utilizing ramos scale, duplex and color-flow imaging. The images were reviewed on a PACS worksta tion. COMPARISON: 01/12/2015 FINDINGS: Evaluation of the right carotid bifurcation region reveals mild calcific atherosclerotic disease. Evaluation of the left carotid bifurcation region reveals mild to moderate soft plaque. There is antegrade flow within the vertebral arteries bilaterally. RIGHT CAROTID MEASUREMENTS: Common Carotid Bonorx92.7 (cm/sec) Internal Carotid Artery - rbgnodjc05.3 (cm/sec) Internal Carotid Artery - mid34.5 (cm/sec) Internal Carotid Artery - uupitr01.3 (cm/sec) Internal Carotid/Common Carotid0.6 LEFT CAROTID MEASUREMENTS: Common Carotid Dzrnit02.3 (cm/sec) Internal Carotid Artery - hmfbgsce53.3 (cm/sec) Internal Carotid Artery - mid28 (cm/sec) Internal Carotid Artery - .6 (cm/sec) Internal Carotid/Common Carotid0.8 IMPRESSION: 1. No evidence for hemodynamically significant carotid artery stenosis. 2. Normal antegrade flow in the vertebral arteries bilaterally. RPTAT: HPNM Physician Maria Eugenia Date Time Electronically viewed and signed by Physician Maria Eugenia on 03/06/2017 16:57 /
[2017-03-06] MEDS: INSULIN ASPART [NOVOLOG] 3 ML PEN SC SCH ×2 (17:31→20:27)
[2017-03-06] MEDS: FAMOTIDINE 20 MG TAB PO SCH (20:19)
[2017-03-06] MEDS ORDERED: ATORVASTATIN 80 MG TAB PO SCH (21:00)
[2017-03-07] VITALS (9 sets, daily range): BP systolic 136–157; BP diastolic 87–107; PULSE 75–122; RESP 17–20
[2017-03-07] MEDS ORDERED: ACCU-CHEK XX SCH (02:00)
[2017-03-07 06:53] LABS: BASOPHIL # 0.1 10^3/ul (0.0-0.1); BASOPHILS % 1.1 % (0.0-2.0); EOSINOPHILS # 0.7 10^3/ul (0.0-0.5); EOSINOPHILS % 7.2 % (0.0-7.0); HEMATOCRIT 41.8 % (42.0-52.0); HEMOGLOBIN 14.5 g/dl (14.0-18.0); LYMPHOCYTES # 1.4 10^3/ul (0.8-2.9); LYMPHOCYTES % 14.5 % (15.0-51.0); MEAN CORPUSCULAR HEMOGLOBIN 29.8 pg (29.0-33.0); MEAN CORPUSCULAR HGB CONC 34.7 g/dl (32.0-37.0); MEAN PLATELET VOLUME 9.4 fl (7.4-10.4); MONOCYTE # 1.1 10^3/ul (0.3-0.9); MONOCYTES % 11.3 % (0.0-11.0); NEUTROPHIL # 6.2 10^3/ul (1.6-7.5); NEUTROPHILS % 65.5 % (39.0-77.0); PLATELET COUNT 410 10^3/UL (140-415); RED BLOOD COUNT 4.86 10^6/ul (4.70-6.10); RED CELL DISTRIBUTION WIDTH 12.3 % (11.5-14.5); WHITE BLOOD COUNT 9.4 10^3/ul (4.8-10.8)
[2017-03-07 07:22] LABS: CALCIUM 8.8 mg/dl (8.4-10.2); CREATININE 1.99 mg/dl (0.61-1.24); POTASSIUM 4.3 mmol/L (3.5-5.1)
[2017-03-07 07:23] LABS: MAGNESIUM 1.6 mg/dl (1.7-2.5); PHOSPHORUS 4.4 mg/dl (2.5-4.9)
[2017-03-07] MEDS: INSULIN ASPART [NOVOLOG] 3 ML PEN SC SCH ×3 (08:35→17:33)
[2017-03-07] MEDS: PANTOPRAZOLE (EC) 40 MG TAB PO SCH (08:45)
[2017-03-07] MEDS: NIFEdipine (XL) 30 MG TAB PO SCH (08:45)
[2017-03-07] MEDS: FAMOTIDINE 20 MG TAB PO SCH (08:45)
[2017-03-07] MEDS: ENOXAPARIN 30 MG/0.3 ML SYG SC SCH (08:47)
[2017-03-07] MEDS ORDERED: ASPIRIN (EC) 81 MG TAB PO SCH (09:00)
[2017-03-07] MEDS ORDERED: ALLOPURINOL 300 MG TAB PO SCH (09:00)
--- NOTE | 2017-03-07 12:45 | PN ---
Date/Time of Note Date/Time of Note DATE: 03/07/17 TIME: 12:21 Assessment/Plan VTE Prophylaxis VTE Prophylaxis Intervention: SCD's Lines/Catheters IV Catheter Type (from Nrs): Saline Lock Assessment/Plan Assessment/Plan 51-year-old male with: 1. 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 Symptoms much improved Patient to be discharged home today with home physical therapy, appreciate recommendations from neurology Dr Gilliam. Continue secondary prevention with aspirin. Blood pressure control, statin therapy Home health PT at discharge. 2. Hypertension: DC Norvasc as an outpatient, continue nifedipine, follow-up with primary care physician regarding further titration of medication. Because of chronic kidney disease and creatinine running around 2 would avoid FABIO inhibitors or ARB. Also noted to have relative bradycardia with heart rate in the low 60s to upper 50s, therefore beta blockers will be avoided for now. Hydralazine added as needed for systolic blood pressure above 160. 3. Hyperlipidemia: Patient started on high-dose Lipitor. Weight loss and lifestyle modification also recommended. 4. Chronic kidney disease stage III, likely hypertensive nephropathy baseline creatinine around 2.2. Renal function stable, around 2.0 today. Renal ultrasound confirming chronic kidney disease. Avoid potentially nephrotoxic medications. Avoid high dose NSAIDs. 6. Gout: Uric acid level within normal, continue Allopurinol 300 mg once daily. Prophylaxis: Pepcid for GI prophylaxis, Lovenox for DVT prophylaxis. Disposition: Discharge home with home health PT, follow-up with primary care physician patient needs his renal function and blood pressure monitored as an outpatient. He does have chronic kidney disease stage III likely Subjective 24 Hr Interval Summary Free Text/Dictation Patient feels much better, his strength has improved on the left side. His balance is stable. He is able to ambulate without DME currently. Blood pressure much better controlled. Patient will be discharged home today. Exam/Review of Systems Vital Signs Vitals Vital Signs Date Time Temp Pulse Resp B/P Pulse Ox O2 Delivery O2 Flow Rate FiO2 03/07/17 11:39 98.0 91 18 136/87 100 03/05/17 12:30 Room Air 03/05/17 08:28 2 Intake and Output 03/06/17 03/06/17 03/07/17 15:00 23:00 07:00 Intake Total 1200 ml 500 ml Output Total 400 ml Balance 1200 ml 100 ml Exam Constitutional: alert, oriented, well developed Respiratory: clear to auscultation, normal air movement Cardiovascular: nl pulses, regular rate and rhythm Gastrointestinal: non-tender, soft Musculoskeletal: nl extremities to inspection Extremities: normal pulses, other (NO edema, clubbing or cyanosis) 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, nl mental status, nl speech, nl strength Results Result Diagram: 03/07/1761703/07/17617 Results 24 hrs Laboratory Tests Test 03/06/17 14:31 03/06/17 17:29 03/06/17 20:25 03/07/17 04:25 Uric Acid 7.7 Bedside Glucose 128 162 Urine Eosinophils % 0.0 Urine Random Creatinine 82.97 Urine Random Sodium 86 Urine Total Protein 177.0 H Test 03/07/17 06:18 03/07/17 08:32 03/07/17 12:10 White Blood Count 9.4 # Red Blood Count 4.86 Hemoglobin 14.5 Hematocrit 41.8 L Mean Corpuscular Volume 86.0 Mean Corpuscular Hemoglobin 29.8 Mean Corpuscular Hemoglobin Concent 34.7 Red Cell Distribution Width 12.3 Platelet Count 410 Mean Platelet Volume 9.4 Neutrophils % 65.5 Lymphocytes % 14.5 L Monocytes % 11.3 H Eosinophils % 7.2 H Basophils % 1.1 Nucleated Red Blood Cells % 0.0 Neutrophils # 6.2 Lymphocytes # 1.4 Monocytes # 1.1 H Eosinophils # 0.7 H Basophils # 0.1 Nucleated Red Blood Cells # 0.0 Sodium Level 138 Potassium Level 4.3 Chloride Level 104 Carbon Dioxide Level 23 Anion Gap 15 Blood Urea Nitrogen 33 H Creatinine 1.99 H Glucose Level 148 Calcium Level 8.8 Phosphorus Level 4.4 Magnesium Level 1.6 L Bedside Glucose 163 164 Medications Medications Current Medications Enoxaparin Sodium (Lovenox) 30 mg DAILY SC Last administered on 03/07/17 08:47 ; Admin Dose 30 MG; Start 03/05/17 at 11:30 Pantoprazole (Protonix Tab) 40 mg DAILY PO Last administered on 03/07/17 08:45 ; Admin Dose 40 MG; Start 03/05/17 at 11:30 Atorvastatin Calcium (Lipitor) 80 mg HS PO Last administered on 03/06/17 20:19 ; Admin Dose 80 MG; Start 03/06/17 at 21:00 Nifedipine (Procardia Xl) 30 mg BID PO Last administered on 03/07/17 08:45; Admin Dose 30 MG; Start 03/06/17 at 13:30 Allopurinol (Zyloprim) 300 mg DAILY PO Last administered on 03/07/17 08:45; Admin Dose 300 MG; Start 03/07/17 at 09:00 Hydralazine HCl (Apresoline) 10 mg Q6H PRN IV ELEVATED BLOOD PRESSURE; Start 03/06/17 at 13:30 Aspirin (Halfprin) 81 mg DAILY PO Last administered on 03/07/17 08:45; Admin Dose 81 MG; Start 03/07/17 at 09:00 Diagnostic Test (Pha) (Accu-Chek) 1 ea 02 XX ; Start 03/07/17 at 02:00 Famotidine (Pepcid) 20 mg BID PO Last administered on 03/07/17 08:45; Admin Dose 20 MG; Start 03/06/17 at 21:00 Miscellaneous Information 1 ea NOTE XX ; Start 03/06/17 at 14:00 Glucose (Glutose) 15 gm Q15M PRN PO DECREASED GLUCOSE; Start 03/06/17 at 14:00 Glucose (Glutose) 22.5 gm Q15M PRN PO DECREASED GLUCOSE; Start 03/06/17 at 14: 00 Dextrose (D50w Syringe) 25 ml Q15M PRN IV DECREASED GLUCOSE; Start 03/06/17 at 14:00 Dextrose (D50w Syringe) 50 ml Q15M PRN IV DECREASED GLUCOSE; Start 03/06/17 at 14:00 Glucagon (Glucagen) 1 mg Q15M PRN IM DECREASED GLUCOSE; Start 03/06/17 at 14:00 Glucose (Glutose) 15 gm Q15M PRN BUCCAL DECREASED GLUCOSE; Start 03/06/17 at 14 :00 TEMI OLSON Mar 07, 2017 12:44
--- NOTE | 2017-03-07 12:47 | PDOCDIS ---
Discharge Instructions CONDITION Patient Condition: Stable HOME CARE INSTRUCTIONS: Special Diet: cardiac ACTIVITY: Activity Restrictions: Slowly Increase Activity FOLLOW UP/APPOINTMENTS Follow-up Plan Follow-up with primary care physician within 1 week for follow-up on renal function and blood pressure control. Follow-up/referral to neurology outpatient, patient with remote history of hemorrhagic CVA and now with status post ischemic CVA with residual mild left hemiparesis. Patient may need referral to nephrology as an outpatient for chronic kidney disease, this can be obtained to primary care physician if needed. TEMI OLSON Mar 07, 2017 12:47
[2017-03-07] MEDS ORDERED: NIFE30TA2 PO (12:48)
[2017-03-07] MEDS ORDERED: ASPI-664 PO (12:48)
[2017-03-07] MEDS ORDERED: ATOR80TA75 PO (12:48)
--- NOTE | 2017-03-07 16:45 | DS ---
Date/Time of Note Date/Time of Note DATE: 03/07/17 TIME: 16:34 Discharge Summary Admission/Discharge Info Admit Date/Time Mar 05, 2017 at 10:25 Discharge Date/Time 03/07/2017 Patient Condition: Stable Consults Neurology, Dr. Gilliam Procedures None Hx of Present Illness The patient is a 51-year-old male with hypertension and previous hemorrhagic stroke approximately 7 years ago, who was in his usual state of health until 1 day prior to admission. The patient stated he had onset of numbness and weakness in his left lower extremity and later in his left upper extremity approximately 6:30 p.m. the night before. Symptoms subsided and then subsequently he went to bed and at that time his symptoms worsened. He felt that his leg was spasming and his left arm was weak. He was particularly weak in his left hand. He thought he would rest and the symptoms would resolve, but presented to the emergency department over 12 hours after his initial symptomatology. In the emergency department, he is found to be hypertensive with a blood pressure of 205/136, a pulse rate of 107. The patient had a CT scan of his brain which did not reveal any acute intracranial pathology; however, he had mild microvascular ischemic disease and chronic hemorrhagic left putamen infarct as well as chronic right pontine lacunar infarct. The patient was evaluated by Dr. Wong in the emergency department, as well as Dr. Weber from the neurology team. Based on the patient's presentation and symptomatology , he has an acute ischemic stroke. The patient was given 325 mg of aspirin and multiple lab tests were ordered. Of note, the patient did have a urine toxicology screen that was positive for opiates. Upon questioning, he stated he did not take any opiate containing medications whatsoever Hospital Course Patient was found to have a small subacute stroke, 7 mm, dorsal limb right internal capsule, he is left hemiparesis keeps improving over the past 48 hours , blood pressure is much better controlled on nifedipine XL. He has been offered acute rehab however he is declining and he wants to go home, physical therapy has reevaluated the patient today, he is stable for home with home health PT. Patient will be discharged home today. Also he does have chronic kidney disease which is confirmed on renal ultrasound, he is at baseline creatinine is running around 2.0. Patient is cleared close follow-up with his primary care physician regarding blood pressure and renal function monitoring. Patient is to be compliant with follow-ups, also advised him to go on carbohydrate controlled diet as his hemoglobin A1c was 6.9. He can follow-up with his primary care physician who can initiate him on hypoglycemic agent if he is diagnosed with diabetes mellitus. Continue statin therapy and aspirin. Hopefully patient will be compliant with outpatient PT Home Meds Active Scripts Aspirin* (Aspirin* EC) 81 Mg Tablet.dr, 81 MG PO DAILY for 30 Days, 3 Refills Prov:WESLEYGarimaPiotrIZAIAHSAMRA Gabbie 03/07/17 Nifedipine (Procardia Xl) 30 Mg Tab.er.24, 30 MG PO BID for 30 Days, TAB 3 Refills Prov:WESLEYGarimaPiotrIZAIAHSAMRA Cartwright 03/07/17 Atorvastatin* (Atorvastatin*) 80 Mg Tablet, 80 MG PO HS for 30 Days, TAB 3 Refills Prov:WESLEYGarimaSARAI 03/07/17 Reported Medications Allopurinol* (Allopurinol*) 300 Mg Tablet, 300 MG PO DAILY, TAB 03/05/17 Discontinued Reported Medications Amlodipine Besylate* (Amlodipine Besylate*) 10 Mg Tablet, 10 MG PO DAILY, #30 TAB 03/05/17 Amlodipine Besylate* (Norvasc*) 5 Mg Tablet, 5 MG PO DAILY, TAB 01/12/15 Discontinued Scripts Indomethacin* (Indocin*) 50 Mg Cap, 50 MG PO Q6, #20 CAP Prov:BROOKE SMITH 02/21/17 Prednisone* (Prednisone*) 20 Mg Tab, 60 MG PO DAILY for 5 Days, TAB Prov:NILAMSANDY QUINONES C 05/29/16 Ranitidine Hcl* (Zantac*) 150 Mg Tablet, 150 MG PO BID Y for EPIGASTRIC PAIN, # 30 TAB Prov:NILAMSANDY QUINONES C 05/29/16 Diphenhydramine Hcl* (Benadryl*) 25 Mg Cap, 25 MG PO Q6, #30 CAP Prov:NILAM,SANDY C 05/29/16 Indomethacin* (Indocin*) 50 Mg Cap, 50 MG PO TID, #14 CAP Prov:SHAHIDA HANDY PA-C 11/24/14 Allopurinol* (Allopurinol*) 300 Mg Tablet, 300 MG PO DAILY, #30 TAB Prov:CARLOS RAM MD 10/12/14 Follow-up Plan Follow-up with primary care physician within 1 week for follow-up on renal function and blood pressure control. Follow-up/referral to neurology outpatient, patient with remote history of hemorrhagic CVA and now with status post ischemic CVA with residual mild left hemiparesis. Patient may need referral to nephrology as an outpatient for chronic kidney disease, this can be obtained to primary care physician if needed. Primary Care Provider Mahin Araujo Pending Labs Laboratory Tests Test 03/06/17 17:29 03/06/17 20:25 03/07/17 04:25 03/07/17 06:18 Bedside Glucose 128mg/dL (70-220) 162mg/dL (70-220) Urine Eosinophils % 0.0% (0-1.9) Urine Random Creatinine 82.97mg/dl (20-370) Urine Random Sodium 86mmol/L (30-90) Urine Total Protein 177.0mg/dl (0.0-11.9) White Blood Count 9.410^3/ul (4.8-10.8) Red Blood Count 4.8610^6/ul (4.70-6.10) Hemoglobin 14.5g/dl (14.0-18.0) Hematocrit 41.8% (42.0-52.0) Mean Corpuscular Volume 86.0fl (82.0-101.0) Mean Corpuscular Hemoglobin 29.8pg (29.0-33.0) Mean Corpuscular Hemoglobin Concent 34.7g/dl (32.0-37.0) Red Cell Distribution Width 12.3% (11.5-14.5) Platelet Count 04180^3/UL (140-415) Mean Platelet Volume 9.4fl (7.4-10.4) Neutrophils % 65.5% (39.0-77.0) Lymphocytes % 14.5% (15.0-51.0) Monocytes % 11.3% (0.0-11.0) Eosinophils % 7.2% (0.0-7.0) Basophils % 1.1% (0.0-2.0) Nucleated Red Blood Cells % 0.0/100WBC (0.0-0.0) Neutrophils # 6.210^3/ul (1.6-7.5) Lymphocytes # 1.410^3/ul (0.8-2.9) Monocytes # 1.110^3/ul (0.3-0.9) Eosinophils # 0.710^3/ul (0.0-0.5) Basophils # 0.110^3/ul (0.0-0.1) Nucleated Red Blood Cells # 0.010^3/ul (0.0-0.0) Sodium Level 138mmol/L (135-144) Potassium Level 4.3mmol/L (3.5-5.1) Chloride Level 104mmol/L (97-110) Carbon Dioxide Level 23mmol/L (21-31) Anion Gap 15 (8-16) Blood Urea Nitrogen 33mg/dl (7-20) Creatinine 1.99mg/dl (0.61-1.24) Glucose Level 148mg/dl (70-220) Calcium Level 8.8mg/dl (8.4-10.2) Phosphorus Level 4.4mg/dl (2.5-4.9) Magnesium Level 1.6mg/dl (1.7-2.5) Test 03/07/17 08:32 03/07/17 12:10 Bedside Glucose 163mg/dL (70-220) 164mg/dL (70-220) TEMI OLSON Mar 07, 2017 16:44
== END 2017-03-07 18:20 | disposition home health service (06) | DRG 65 ==
LOC: E/R 08:00 → TEL 10:25
PROVIDERS: ADMIT Internal Medicine; ATTEND Internal Medicine
DX: I63.9 Cerebral infarction, unspecified (principal); G81.94 Hemiplegia, unspecified affecting left nondominant side; D68.59 Other primary thrombophilia; N18.3 Chronic kidney disease, stage 3 (moderate); R29.810 Facial weakness; I12.9 Hypertensive chronic kidney disease with stage 1 through stage 4 chronic kidney disease, or unspecified chronic kidney disease; R29.701 NIHSS score 1; I16.0 Hypertensive urgency; R27.8 Other lack of coordination; M1A.9XX0 Chronic gout, unspecified, without tophus (tophi); D47.3 Essential (hemorrhagic) thrombocythemia; F11.90 Opioid use, unspecified, uncomplicated; E78.5 Hyperlipidemia, unspecified; Z86.73 Personal history of transient ischemic attack (TIA), and cerebral infarction without residual deficits
CPT/HCPCS: 36415; 70450; 70544; 70548; 70551; 71010; 76775; 80048; 80061; 80307; 81001; 81003; 82962; 83036; 83735; 84100; 84155; 84300; 84484; 84560; 85025; 85610; 85730; 89190; 92523; 92610; 93005; 93306; 93880; 97110; 97116; 97163; 97165; 97530; 97535; J1650; J1815

== ENCOUNTER 2017-11-09 09:07 | Emergency (ER) | END 2017-11-09 12:28 | disposition home or self-care (01) ==

== ENCOUNTER 2018-07-12 10:21 | Emergency (ER) | payer OTHER ==
[~2018-07-12] VITALS: Ht 167.6 cm; Wt 80.0 kg
[~2018-07-12 10:21] MED LIST changes: -AMLO5TAB4 PO; +ASPI-817 PO; +ATOR-2 PO; -BEN25 PO; +DIAZ5TAB PO; -IND50 PO; +MECL12.574 PO; +NIFE30TA2 PO; +ONDA4TAB14 PO; -PRED20TA PO; -RANI150T9 PO
[2018-07-12 10:35] VITALS: Ht 167.6 cm; Wt 80.0 kg
[2018-07-12] MEDS ORDERED: ONDANSETRON (ODT) 4 MG TAB ODT ONE (11:44)
[2018-07-12] MEDS ORDERED: ONDANSETRON (ODT) 4 MG TAB ODT STA ×2 (11:49→13:10)
--- NOTE | 2018-07-12 12:14 | ERD ---
ER Documentation Chief Complaint Chief Complaint Complains of Blood pressure problems Hx of HTN, stroke x2 HPI This is a very pleasant 52-year-old male with past medical history of hypertension and previous cerebrovascular accidents with no residual weakness. The patient indicates that he has been noncompliant with his antihypertensive medication which includes hydrochlorothiazide. The patient indicates that he presents to the emergency department today as he is complaining of a pressure- like sensation in the back of his head has been present for the past 24 hours. Indicates the pain is worse when he woke up this morning. He however states this is not the worst headache of his life. He indicated yesterday he had 2 episodes of nonbloody nonbilious emesis but denies any abdominal pain. He is still feeling nauseous. He has no chest pain or pressure that radiates to the neck arm back or jaw. Indicates his medications that he takes for blood pressure are amlodipine and hydrochlorothiazide but again he indicates he is noncompliant. ROS All systems reviewed and are negative except as per history of present illness. Medications Home Meds Reported Medications Allopurinol* (Allopurinol*) 300 Mg Tablet, 300 MG PO NEEDED, TAB 07/12/18 Furosemide* (Furosemide*) 20 Mg Tablet, 20 MG PO NEEDED, #60 TAB 07/12/18 Aspirin* (Aspirin* EC) 81 Mg Tablet., 81 MG PO DAILY, TAB 07/12/18 Discontinued Reported Medications Allopurinol* (Allopurinol*) 300 Mg Tablet, 300 MG PO DAILY, TAB 03/05/17 Discontinued Scripts Diazepam* (Valium*) 5 Mg Tablet, 5 MG PO Q8, #10 TAB Prov:VÍCTOR BAEZ PA-C 11/09/17 Ondansetron (Ondansetron Odt) 4 Mg Tab.rapdis, 4 MG PO Q6H PRN for NAUSEA AND/OR VOMITING, #10 TAB Prov:VÍCTOR BAEZ PA-C 11/09/17 Meclizine Hcl* (Antivert*) 12.5 Mg Tab, 12.5 MG PO Q6H PRN for DIZZINESS, #20 TAB Prov:VÍCTOR BAEZ PA-C 11/09/17 Aspirin* (Aspirin* EC) 81 Mg Tablet., 81 MG PO DAILY for 30 Days, 3 Refills Prov:TEMI OLSON 03/07/17 Nifedipine (Procardia Xl) 30 Mg Tab.er.24, 30 MG PO BID for 30 Days, TAB 3 Refills Prov:TEMI OLSON 03/07/17 Atorvastatin* (Atorvastatin*) 80 Mg Tablet, 80 MG PO HS for 30 Days, TAB 3 Refills Prov:TEMI OLSNO 03/07/17 Allergies Allergies: Coded Allergies: No Known Allergy (Unverified , 07/12/18) PMhx/Soc History of Surgery: No Anesthesia Reaction: No Hx Neurological Disorder: Yes (stroke 7yrs ago x3,) Hx Respiratory Disorders: No Hx Cardiac Disorders: Yes (htn, ) Hx Psychiatric Problems: No Hx Miscellaneous Medical Probl: Yes (Gout) Hx Alcohol Use: Yes (socially) Hx Substance Use: No Hx Tobacco Use: No Smoking Status: Never smoker Physical Exam Vitals Vital Signs Date Temp Pulse Resp B/P (MAP) Pulse Ox O2 O2 Flow FiO2 Time Delivery Rate 07/12/18 87 20 187/111 97 Room Air 13:06 (136) 07/12/18 98.6 100 20 171/101 100 10:35 (124) Physical Exam Constitutional:Well-developed. Well-nourished. HEENT:Normocephalic. Atraumatic.Pupils were equal round reactive to light. Moist mucous membranes.No tonsillar exudates. Funduscopy exam shows sharp optic disks and venous pulsations are Neck: No nuchal rigidity. No lymphadenopathy. No posterior cervical spine tenderness or step-offs. Respiratory: Not using accessory muscles of respiration.Lungs were clear to auscultation bilaterally. No rhonchi. No rales. No wheezing. Cardiovascular: Regular rate regular rhythm.No murmurs. No rubs were appreciated.S1, S2 normal. Distal pulses are palpable 2+ bilaterally. GI: Abdomen was soft. Nontender. Non Distended. No pulsatile abdominal masses or bruits. No rebound. No guarding. Bowel sounds were present and normal. Muscle skeletal: Full range of motion of both the upper and lower extremities bilaterally.Normal muscle tone.No assymetrical calf tenderness or swelling. Skin: No petechia, no purpura. No lesions on the palms or the soles of the feet. No maculopapular rash. NEURO: Patient was alert, awake, orientated x3.No facial droop. Gait observed and normal with no ataxia.Speech had regular rate and rhythm. No focal n eurological deficits. Result Diagram: 07/12/18 1145 07/12/18 1145 Results 24 hrs Laboratory Tests Test 07/12/18 11:45 White Blood Count 6.7 10^3/ul Red Blood Count 4.84 10^6/ul Hemoglobin 13.1 g/dl Hematocrit 39.8 % Mean Corpuscular Volume 82.2 fl Mean Corpuscular Hemoglobin 27.1 pg Mean Corpuscular Hemoglobin Concent 32.9 g/dl Red Cell Distribution Width 14.3 % Platelet Count 331 10^3/UL Mean Platelet Volume 9.8 fl Immature Granulocytes % 0.300 % Neutrophils % 72.0 % Lymphocytes % 14.4 % Monocytes % 9.2 % Eosinophils % 3.2 % Basophils % 0.9 % Nucleated Red Blood Cells % 0.0 /100WBC Immature Granulocytes # 0.020 10^3/ul Neutrophils # 4.8 10^3/ul Lymphocytes # 1.0 10^3/ul Monocytes # 0.6 10^3/ul Eosinophils # 0.2 10^3/ul Basophils # 0.1 10^3/ul Nucleated Red Blood Cells # 0.0 10^3/ul Prothrombin Time 12.7 Sec Prothrombin Time Ratio 1.0 INR International Normalized Ratio 0.94 Activated Partial Thromboplast Time 32.1 Sec Sodium Level 139 mmol/L Potassium Level 3.6 mmol/L Chloride Level 108 mmol/L Carbon Dioxide Level 21 mmol/L Anion Gap 10 Blood Urea Nitrogen 30 mg/dl Creatinine 2.75 mg/dl Est Glomerular Filtrat Rate mL/min 24 mL/min Glucose Level 146 mg/dl Calcium Level 8.8 mg/dl Total Bilirubin 1.0 mg/dl Direct Bilirubin 0.00 mg/dl Indirect Bilirubin 1.0 mg/dl Aspartate Amino Transf (AST/SGOT) 19 IU/L Alanine Aminotransferase (ALT/SGPT) 17 IU/L Alkaline Phosphatase 119 IU/L Troponin I 0.015 ng/ml Total Protein 7.1 g/dl Albumin 3.8 g/dl Globulin 3.30 g/dl Albumin/Globulin Ratio 1.15 Current Medications Medications Dose Sig/Carine Start Time Status Last (Trade) Ordered Route PRN Stop Time Admin Dose Reason Admin Clonidine 0.1 mg ONCE ONCE 07/12/18 DC 07/12/18 (Catapres) PO 11:30 11:46 07/12/18 11:31 Ondansetron 4 mg STK-MED 07/12/18 DC HCl (Zofran ONCE ODT 11:44 Odt) 07/12/18 11:45 Ondansetron 8 mg ONCE STAT 07/12/18 DC 07/12/18 HCl (Zofran ODT 11:49 12:06 Odt) 07/12/18 11:50 40 ml ONCE STAT 07/12/18 DC 07/12/18 Miscellaneous PO 13:10 13:16 Medication 07/12/18 13:11 (Gi Cocktail (2)) Belladonna/ 2 tab ONCE STAT 07/12/18 DC 07/12/18 Phenobarbital PO 13:10 13:16 () 07/12/18 13:11 Ondansetron 4 mg ONCE STAT 07/12/18 DC 07/12/18 HCl (Zofran ODT 13:10 13:16 Odt) 07/12/18 13:11 Nicardipine 30 mg ONCE ONCE 07/12/18 DC 07/12/18 HCl PO 13:30 13:16 (Cardene) 07/12/18 13:31 Procedures/MDM This patient presented to the emergency department with severely elevated blood pressure. My differential diagnosis included but was not limited to conditions that could end-organ damage such as acute coronary syndrome, acute pulmonary edema, aortic dissection, subarachnoid hemorrhage, intracerebral hemorrhage, cerebral infarction, withdrawal syndromes from beta blockers, or states of catecholamine excess such as pheochromocytoma or drug intoxication. Ancillary lab work was obtained. There was no elevation in the BUN and creatinine to suggest acute renal failure. Electrolytes were normal. Cardiac enzyme was normal and the 12 lead EKG showed no acute ischemic changes or left ventricular hypertrophy. 12 Lead EKG tracing ordered and reviewed by myself showed: Normal sinus rhythm of 89 bpm and no arrhythmia. CT interval normal. QRS duration normal. No ST segment elevation. Left ventricular hypertrophy No ST segment depression. No changes consistent with acute ischemia. I did feel is necessary to obtain a CT scan of the patient's head given his signs and symptoms. The CT scan of the head showed no intracerebral hemorrhage mass-effect or midline shift. I felt the patient's headache could be result of his elevated blood pressure but there was no signs of subarachnoid hemorrhage or meningitis. The patient's BUN and creatinine were elevated however he states he has chronic kidney disease not on dialysis and this is his baseline. Given that the patient had an absence of cerebral, ocular, cardiac or renal damage the hypertensive urgency was treated with oral agents in the emergency room with improvement of the patient's blood pressure. The patient did have an episode of nonbloody nonbilious emesis in the emergency department. He had an episode yesterday of nonbloody nonbilious emesis and therefore did feel this was likely viral in etiology. Patient had been given Zofran and had been given clonidine. The patient afterwards had experienced the emesis and therefore was unable to absorbed the antihypertensive medication. He was given a GI cocktail further dose of antiemetics and guarding. The patient was now able to tolerate oral intake with resolution of his blood pressure. The patient likely appeared to be complaint with primary care physician and will follow up with their PCP in the next 24-48 hours. They were instructed to return to the emergency department at anytime if there is any worsening of their condition such as development of chest pain or a headache. They were instructed to resume previous medication regimen or initiate a suitable medication regimen under care of the PCP to enable proper monitoring for drug reactions. The patient was also informed on the adverse side effects and adverse drug interactions of the medications prescribed to them by myself. The patient gave i nformed consent to the prescription of the new medication. Departure Diagnosis: Primary Impression: Accelerated hypertension Additional Impression: Vomiting Vomiting type: unspecified Vomiting Intractability: non-intractable Nausea presence: with nausea Qualified Codes: R11.2 - Nausea with vomiting, unspecified Condition: DAWOOD Richard MD Jul 12, 2018 11:50
[2018-07-12] MEDS ORDERED: ASPI-817 PO (12:56)
[2018-07-12] MEDS ORDERED: FURO20TA3 PO (12:56)
[2018-07-12] MEDS ORDERED: ALLO300T2 PO (12:57)
[2018-07-12] MEDS ORDERED: BELLADONNA/PHENOBARBITAL TAB PO STA (13:10)
[2018-07-12] MEDS ORDERED: LIDOCAINE/MYLANTA 40 ML BTL PO STA (13:10)
[2018-07-12] MEDS ORDERED: NICARDipine HCL 30 MG CAPSULE PO ONE (13:30)
[2018-07-12] MEDS ORDERED: ONDA4TAB14 PO (14:09)
[2018-07-12] MEDS ORDERED: MECLIZINE 12.5 MG TAB PO ONE (15:30)
[2018-07-12 15:43] VITALS: BP 178/111; PULSE 89; RESP 20
== END 2018-07-12 15:50 | disposition home or self-care (01) ==
LOC: E/R 10:21
DX: I10 Essential (primary) hypertension (principal); R11.2 Nausea with vomiting, unspecified; R10.9 Unspecified abdominal pain; R51 Headache; Z79.82 Long term (current) use of aspirin
CPT/HCPCS: 70450; 71045; 80053; 84484; 85025; 85610; 85730; 93005; Z7502; Z7610